=== PATIENT | female | born 1935 | race Caucasian/White ===

== ENCOUNTER 2024-04-09 16:41 | Emergency (ER) | payer OTHER ==
[2024-04-09 18:06] VITALS: PULSE 65; RESP 16; TEMP 98.4; BMI 24.8
[2024-04-09 19:56] LABS: EPI CELLS 7 /uL (0-25.1); HYALINE CASTS 0 /uL (0-3.1); URINE APPEARANCE CLEAR; URINE BACTERIA 43 /uL (0-1359); URINE BILIRUBIN NEGATIVE (NEGATIVE); URINE COLOR YELLOW; URINE GLUCOSE (UA) NEGATIVE (NEGATIVE); URINE KETONE NEGATIVE (NEGATIVE); URINE LEUK ESTERASE TRACE (NEGATIVE); URINE NITRITE NEGATIVE (NEGATIVE); URINE PROTEIN NEGATIVE (NEGATIVE); URINE RBC 24 /uL (0-23.9); URINE UROBILINOGEN 0.2 mg/dL (0.2-1.0); URINE WBC 8 /uL (0-25.8)
[2024-04-09] MEDS ORDERED: ACETAMINOPHEN INJECTION 100 ML ONE (19:57)
[2024-04-09] MEDS ORDERED: LIDOCAINE 5% TOPICAL PATCH ONE (19:57)
[2024-04-09] MEDS: LIDOCAINE 5% TOPICAL PATCH TP ONE (20:03)
[2024-04-09] MEDS: ACETAMINOPHEN 1000 MG/100 ML BAG IVPB ONE (20:03)
[2024-04-09 20:31] LABS: BASO % 0.6 % (0-2.0); EOS % 2.2 % (0-4.5); HEMATOCRIT 40.7 % (32.4-45.2); HEMOGLOBIN 13.3 GM/dL (10.7-15.3); LYMPH % 29.5 % (8-40); MCH 28.6 pg (25.7-33.7); MCHC 32.6 g/dl (32.0-36.0); MEAN CELL VOLUME 87.9 fl (80-96); MEAN PLT VOLUME 9.1 fl (7.5-11.1); MONO % 5.9 % (3.8-10.2); NEUT % 61.8 % (42.8-82.8); PLATELET COUNT 226 10^3/uL (134-434); RBC 4.63 M/mm3 (3.60-5.2); RDW 14.7 % (11.6-15.6); WHITE BLOOD COUNT 7.4 K/mm3 (4.0-10.0)
[2024-04-09 20:42] LABS: INR 0.91 (0.83-1.09); PROTHROMBIN TIME (PATIENT) 10.3 SEC (9.7-13.0)
[2024-04-09 20:45] LABS: ACTIVATED PTT 33.6 SECONDS (25.2-36.5)
[2024-04-09 21:00] LABS: POTASSIUM 3.7 mmol/L (3.5-5.1)
[2024-04-09 21:02] LABS: CALCIUM 9.6 mg/dL (8.5-10.1)
[2024-04-09 21:03] LABS: ALBUMIN 3.7 g/dl (3.4-5.0); BLOOD UREA NITROGEN 11.7 mg/dL (7-18)
[2024-04-09 21:06] LABS: CREATININE 0.7 mg/dL (0.55-1.3)
[2024-04-09 21:07] LABS: BILIRUBIN,TOTAL 0.3 mg/dL (0.2-1)
[2024-04-09 21:08] LABS: TOT PROT 7.5 g/dl (6.4-8.2)
[2024-04-10 04:32] VITALS: BP 130/80
[2024-04-10] MEDS ORDERED: LIDOCAINE PATCH REMOVAL MC SCH (07:30)
== END 2024-04-10 04:30 ==
LOC: JER 16:41
PROC: 3E033NZ Introduction of Analgesics, Hypnotics, Sedatives into Peripheral Vein, Percutaneous Approach (ICD-10-PCS; principal; 2024-04-09)
DX: S00.83XA Contusion of other part of head, initial encounter (principal); R35.0 Frequency of micturition; W18.30XA Fall on same level, unspecified, initial encounter
CPT/HCPCS: 36415; 70450-TC; 71045-TC-FY; 72125-TC; 72170-TC-FY; 80053; 81003; 85025; 85610; 85730; 86850; 86900; 86901; 87086; 93005; 93010; 99285-25; J0131